=== PATIENT | male | born 2000 | race Caucasian/White ===

== ENCOUNTER 2022-08-18 11:01 | Day surgery (SDC) | payer OTHER ==
[~2022-08-18] VITALS: Ht 175.3 cm; Wt 84.8 kg
[~2022-08-18 11:01] MED LIST: KETOROLAC 60MG 2ML VIAL As Ordered ONE; LIDOCAINE 2% 100MG/5ML SDV (FOR ANES.) As Ordered ONE; ONDANSETRON 4MG 2ML VIAL As Ordered ONE; ceFAZolin SOD 2 GM in IV 1 EA IV ONE; propofoL 200 MG/20 ML VIAL As Ordered ONE
[2022-08-18] MEDS ORDERED: LR 1,000 ML IV SCH ×2 (11:15→15:40)
[2022-08-18] MEDS ORDERED: fentaNYL 100 MCG/2 ML INJECTION As Ordered ONE ×2 (14:06→15:17)
[2022-08-18] MEDS ORDERED: MIDAZOLAM INJ 2MG/2ML VIAL As Ordered ONE (14:07)
[2022-08-18] MEDS ORDERED: POLYSPORIN TOPICAL OINTMENT 15GM As Ordered ONE (14:22)
[2022-08-18] MEDS ORDERED: ACETAMINOPHEN 1000MG 100ML IV BAG As Ordered ONE (14:38)
[2022-08-18] MEDS ORDERED: GLYCOPYRROLATE INJ 0.2 MG/ML 2 ML VIAL As Ordered ONE (14:43)
[2022-08-18] MEDS ORDERED: ONDANSETRON 4MG 2ML VIAL IV PRN (15:40)
[2022-08-18] MEDS ORDERED: PERCOCET 5MG/325MG TAB PO PRN (15:50)
[2022-08-18] MEDS: HYDROMORPHONE HCL 0.5 MG/ 0.5 ML SYRINGE IV PRN ×4 (16:09→16:47)
[2022-08-18] MEDS: oxyCODONE 5MG TAB PO PRN ×2 (16:09→17:07)
[2022-08-18] MEDS ORDERED: PERCOCET PO (16:14)
[2022-08-18] MEDS: fentaNYL 100 MCG/2 ML INJECTION IV PRN ×4 (16:17→16:33)
[2022-08-18 18:02] VITALS: BP 141/79
== END 2022-08-18 18:06 | disposition home or self-care (01) ==
LOC: M SDC 11:01
PROVIDERS: ATTEND Urology
DX: N47.1 Phimosis (principal); Z87.891 Personal history of nicotine dependence
CPT/HCPCS: 54161; 88304; J0131; J0690; J1100; J1170; J2250; J2405; J3010